=== PATIENT | female | born 1980 | race Caucasian/White ===

== ENCOUNTER 2016-06-05 | Emergency (ER) | payer OTHER | END 2016-06-05 21:16 | disposition home or self-care (01) ==

== ENCOUNTER 2020-01-28 06:29 | Emergency (ER) | payer OTHER ==
[2020-01-28] MEDS ORDERED: FAMOTIDINE 20 MG/2 ML SYRINGE IVP STA (06:45)
[2020-01-28] MEDS ORDERED: FOLIC ACID INJ 1 MG, THIAMINE INJ 100 MG, MAGNESIUM SULFATE 2 GM, MULTIVITAMIN 10 ML in... IV STA ×5 (06:45)
[2020-01-28] MEDS ORDERED: ONDANSETRON 4 MG/2 ML VIAL IVP STA ×2 (06:46)
[2020-01-28] MEDS ORDERED: PANTOPRAZOLE 40 MG VIAL IV STA (06:46)
[2020-01-28] MEDS ORDERED: LORazepam 2 MG/ML VIAL IVP STA ×2 (06:46→08:12)
[2020-01-28] MEDS ORDERED: SODIUM CHLORIDE 0.9% 1,000 ML IV STA (06:46)
[2020-01-28 07:19] LABS: BASOPHILS # (AUTO) 0.1 10^3/uL (0.0-0.1); EOSINOPHILS # (AUTO) 0.2 10^3/uL (0.0-0.7); EOSINOPHILS % (AUTO) 2.9 %; HGB - HEMOGLOBIN 15.8 g/dL (12.0-16.0); LYMPHOCYTES % (AUTO) 19.8 %; MEAN CORPUSCULAR HEMOGLOBIN 33.3 pg (27.0-31.0); MEAN CORPUSCULAR HGB CONC 34.9 g/dL (32.0-36.0); MEAN CORPUSCULAR VOLUME 95.4 fL (81.0-99.0); MEAN PLATELET VOLUME 10.3 fL (7.9-10.8); MONOCYTES # (AUTO) 0.4 10^3/uL (0.0-1.0); MONOCYTES % (AUTO) 8.3 %; NEUTROPHILS # (AUTO) 3.5 10^3/uL (1.5-6.6); NEUTROPHILS % (AUTO) 67.6 %; PLT - PLATELET COUNT 125 10^3/uL (130-450); RED BLOOD COUNT 4.75 10^6/uL (4.20-5.40); RED CELL DISTRIBUTION WIDTH 13.2 % (12.0-15.0); WHITE BLOOD COUNT 5.2 x10^3/uL (4.8-10.8)
[2020-01-28 07:25] LABS: INR 1.1 (0.8-1.2)
[2020-01-28 07:35] LABS: PARTIAL THROMBOPLASTIN TIME 30.5 secs (24.9-33.3)
[2020-01-28 07:49] LABS: MUDS CUTOFF CONCENTRATIONS CUTOFF CONC BELOW:
[2020-01-28 07:52] LABS: BILIRUBIN,URINE NEGATIVE (NEGATIVE); GLUCOSE, URINE (UA) NEGATIVE (NEGATIVE); KETONES,URINE (UA) 15 mg/dL (NEGATIVE); LEUKOCYTE ESTERASE, URINE TRACE (NEGATIVE); NITRITE,URINE NEGATIVE (NEGATIVE); OCCULT BLOOD,URINE NEGATIVE (NEGATIVE); PROTEIN,URINE TRACE mg/dL (NEGATIVE); UROBILINOGEN,URINE 0.2 (NORMAL) E.U./dL (NORMAL)
[2020-01-28 07:57] LABS: CLARITY,URINE HAZY (CLEAR); HCG UR QUAL NEGATIVE
[2020-01-28 08:00] LABS: BACTERIA,URINE Many /HPF (None Seen); MUCUS,URINE Marked Strands; RBC,URINE 0-5 /HPF (0-5); SQUAMOUS EPITHELIAL CELL,UR MANY Squamous (<= Few)
[2020-01-28 08:04] LABS: AMPHETAMINE SCREEN,URINE NEGATIVE (NEGATIVE); BENZODIAZEPINES SCREEN, URINE NEGATIVE (NEGATIVE); COCAINE SCREEN URINE NEGATIVE (NEGATIVE); METHADONE SCREEN, URINE NEGATIVE (NEGATIVE); METHAMPHETAMINES SCREEN, URINE NEGATIVE (NEGATIVE); OPIATE SCREEN, URINE NEGATIVE (NEGATIVE); OXYCODONE SCREEN, URINE NEGATIVE (NEGATIVE); PROPOXYPHENE SCREEN, URINE NEGATIVE (NEGATIVE); TRICYCLIC ANTIDEPRESSANT,URINE NEGATIVE (NEGATIVE)
[2020-01-28 08:12] LABS: ALBUMIN 4.5 g/dL (3.2-5.5); ALBUMIN/GLOBULIN RATIO 1.3 (1.0-2.2); BILIRUBIN,TOTAL 1.3 mg/dL (0.2-1.0); CALCIUM 8.9 mg/dL (8.5-10.3); CREATININE 0.6 mg/dL (0.4-1.0); MAGNESIUM 1.9 mg/dL (1.7-2.8); TOTAL PROTEIN 7.9 g/dL (6.7-8.2)
--- NOTE | 2020-01-28 08:17 | ED Physician Documentation ---
PD HPI NVD - Stated complaint Stated Complaint: VOMITING - Chief complaint Chief Complaint: Abd Pain - History obtained from History obtained from: Patient - History of Present Illness Timing - onset: How many days ago (2) Timing - duration: Days (2) Timing - details: Gradual onset, Still present Associated symptoms: Abdominal pain, Hematemesis, Other (nose bleeds and shaking) Contributing factors: Alcohol use Improved by: Vomiting Similar symptoms before: Has not had sx before Recently seen: Not recently seen - Additonal information Additional information: 39-year-old female who is going through divorce has taken up drinking on a regular basis and she is drinking about 4 drinks per night. She developed some epigastric pain and vomiting and this has been going on for about 2 months. This morning she got up to brush her teeth and vomited blood. She became concerned and has come to the emergency department. She feels shaky she states that she has not had anything to drink in 2 days and that she has had nosebleeds for the past 2 days. Review of Systems Constitutional: denies: Fever Eyes: denies: Decreased vision Ears: denies: Ear pain Nose: denies: Rhinorrhea / runny nose, Congestion Throat: denies: Sore throat Cardiac: denies: Chest pain / pressure, Palpitations Respiratory: denies: Dyspnea, Cough GI: reports: Abdominal Pain, Nausea, Vomiting. denies: Constipation, Diarrhea : denies: Dysuria Skin: denies: Rash Musculoskeletal: denies: Neck pain, Back pain, Extremity pain Neurologic: denies: Generalized weakness, Focal weakness, Numbness Psychiatric: reports: Anxiety PD PAST MEDICAL HISTORY - Past Medical History Past Medical History: Yes Cardiovascular: Hypertension Respiratory: None Neuro: None Endocrine/Autoimmune: None GI: GERD APPLICATION COUNSELOR: None : None HEENT: None Psych: None Musculoskeletal: None Derm: None - Past Surgical History Past Surgical History: Yes Ortho: ACL reconstruction /APPLICATION COUNSELOR: section - Present Medications Home Medications: Ambulatory Orders Medication Instructions Recorded Confirmed LORazepam [Ativan] 1 - 2 mg PO Q6HR PRN #20 tablet 01/28/20 Losartan [Cozaar] 50 mg PO DAILY 01/28/20 01/28/20 Ondansetron Odt [Zofran] 4 mg TL Q6H PRN #10 tablet 01/28/20 Sucralfate [Carafate] 1 gm PO ACHS #60 tablet 01/28/20 - Allergies Allergies/Adverse Reactions: Allergies Allergy/AdvReac Type Severity Reaction Status Date / Time Penicillins Allergy Anaphylaxis Verified 01/28/20 06:50 - Social History Does the pt smoke?: Yes Smoking Status: Current every day smoker Does the pt drink ETOH?: No ETOH Use: Liquor Does the pt have substance abuse?: No - Immunizations Immunizations are current?: Yes - POLST Patient has POLST: No PD ED PE NORMAL - Vitals Vital signs reviewed: Yes (Tachycardic and hypertensive) - General General: Alert and oriented X 3, Well developed/nourished, Other (Pleasant cooperative 39-year-old female appears shaky.) - HEENT HEENT: Atraumatic, PERRL, EOMI - Neck Neck: Supple, no meningeal sign, No bony TTP - Cardiac Cardiac: No murmur, Other (Tachycardia to 110) - Respiratory Respiratory: No respiratory distress, Clear bilaterally - Abdomen Abdomen: Normal bowel sounds, Soft, Non tender, Non distended, No organomegaly - Back Back: No CVA TTP, No spinal TTP - Derm Derm: Normal color, Warm and dry, No rash - Extremities Extremities: No deformity, No edema - Neuro Neuro: Alert and oriented X 3, account solutions analyst 2-12 intact, No motor deficit, No sensory deficit, Normal speech Eye Opening: Spontaneous Motor: Obeys Commands Verbal: Oriented GCS Score: 15 - Psych Psych: Normal mood, Normal affect Results - Vitals Vitals: Vital Signs - 24 hr 01/28/20 01/28/20 01/28/20 06:30 07:46 09:06 Temperature 36.2 C L 36.6 C 37.4 C Heart Rate 118 H 94 105 H Respiratory 18 16 18 Rate Blood Pressure 142/105 H 136/104 H 138/104 H O2 Saturation 98 100 98 Oxygen O2 Source Room air - Labs Labs: Laboratory Tests 01/28/20 01/28/20 01/28/20 07:09 07:09 07:09 WBC 5.2 RBC 4.75 Hgb 15.8 Hct 45.3 MCV 95.4 MCH 33.3 H MCHC 34.9 RDW 13.2 Plt Count 125 L MPV 10.3 Neut # (Auto) 3.5 Lymph # (Auto) 1.0 L [place] # (Auto) 0.4 Eos # (Auto) 0.2 Baso # (Auto) 0.1 Absolute Nucleated RBC 0.00 Nucleated RBC % 0.0 PT 12.0 INR 1.1 APTT 30.5 Sodium 140 Potassium 3.8 Chloride 101 Carbon Dioxide 21 Anion Gap 18.0 H BUN 14 Creatinine 0.6 Estimated GFR (MDRD) 112 Glucose 103 H Calcium 8.9 Magnesium 1.9 Total Bilirubin 1.3 H AST 148 H ALT 91 H Alkaline Phosphatase 68 Total Creatine Kinase 92 Total Protein 7.9 Albumin 4.5 Globulin 3.4 Albumin/Globulin Ratio 1.3 Lipase 45 Urine Color Urine Clarity Urine pH Ur Specific [place] Urine Protein Urine Glucose (UA) Urine Ketones Urine Occult Blood Urine Nitrite Urine Bilirubin Urine Urobilinogen Ur Leukocyte Esterase Urine RBC Urine WBC Ur Squamous Epith Cells Urine Bacteria Urine Mucus Ur Microscopic Review Urine Culture Comments Urine HCG, Qual Urine Opiates Screen Ur Oxycodone Screen Urine Methadone Screen Ur Propoxyphene Screen Ur Barbiturates Screen Ur Tricyclics Screen Ur Phencyclidine Scrn Ur Amphetamine Screen U Methamphetamines Scrn U Benzodiazepines Scrn Urine Cocaine Screen U Cannabinoids Screen Ethyl Alcohol 73.9 01/28/20 07:40 WBC RBC Hgb Hct MCV MCH MCHC RDW Plt Count MPV Neut # (Auto) Lymph # (Auto) [place] # (Auto) Eos # (Auto) Baso # (Auto) Absolute Nucleated RBC Nucleated RBC % PT INR APTT Sodium Potassium Chloride Carbon Dioxide Anion Gap BUN Creatinine Estimated GFR (MDRD) Glucose Calcium Magnesium Total Bilirubin AST ALT Alkaline Phosphatase Total Creatine Kinase Total Protein Albumin Globulin Albumin/Globulin Ratio Lipase Urine Color YELLOW Urine Clarity HAZY Urine pH 7.0 Ur Specific [place] 1.020 Urine Protein TRACE Urine Glucose (UA) NEGATIVE Urine Ketones 15 H Urine Occult Blood NEGATIVE Urine Nitrite NEGATIVE Urine Bilirubin NEGATIVE Urine Urobilinogen 0.2 (NORMAL) Ur Leukocyte Esterase TRACE H Urine RBC 0-5 Urine WBC 4-5 Ur Squamous Epith Cells MANY Squamous H Urine Bacteria Many H Urine Mucus Marked Strands Ur Microscopic Review INDICATED Urine Culture Comments NOT INDICATED Urine HCG, Qual NEGATIVE Urine Opiates Screen NEGATIVE Ur Oxycodone Screen NEGATIVE Urine Methadone Screen NEGATIVE Ur Propoxyphene Screen NEGATIVE Ur Barbiturates Screen NEGATIVE Ur Tricyclics Screen NEGATIVE Ur Phencyclidine Scrn NEGATIVE Ur Amphetamine Screen NEGATIVE U Methamphetamines Scrn NEGATIVE U Benzodiazepines Scrn NEGATIVE Urine Cocaine Screen NEGATIVE U Cannabinoids Screen NEGATIVE Ethyl Alcohol PD MEDICAL DECISION MAKING - ED course Complexity details: reviewed old records, reviewed results, re-evaluated patient, considered differential, d/w patient ED course: 39-year-old female under a lot of stress going through divorce has increased her alcohol consumption excessively and now she has developed alcoholic gastritis with bleeding. She has some current alcohol withdrawal symptoms despite a blood alcohol level of 74. She is treated in the emergency department with Ativan she is given a banana bag and and a liter of saline as well as pepcid and zofran. She is much improved at the conclusion of treatment and is invested in alcohol cessation. She does not think she will have a problem with this and we have given her 5 days off work to accomplish this. She declined support from social media content specialist for alcohol or stress. Departure - Departure Disposition: 01 Home, Self Care Clinical Impression: Stress and adjustment reaction Gastritis Qualifiers: Gastritis type: alcoholic Chronicity: acute Gastritis bleeding: with bleeding Qualified Code(s): K29.21 - Alcoholic gastritis with bleeding Alcohol withdrawal Qualifiers: Complication of substance-induced condition: uncomplicated Qualified Code(s): F10.230 - Alcohol dependence with withdrawal, uncomplicated Condition: Stable Instructions: ED Withdrawal Alcohol, ED PUD Vs Gastritis, ED Stress React, ED Adjustment Disorder Follow-Up: [facility] [Provider Group] Prescriptions: LORazepam [Ativan] 1 - 2 mg PO Q6HR PRN #20 tablet PRN Reason: withdrawal symptoms Sucralfate [Carafate] 1 gm PO ACHS #60 tablet Ondansetron Odt [Zofran] 4 mg TL Q6H PRN #10 tablet PRN Reason: Nausea / Vomiting Comments: Today it appears your stomach lining has been irritated by the alcohol and the recommendation is to discontinue the use of the alcohol and to use the Carafate to help heal up the stomach. In addition to the Carafate you will need to take something to reduce the acid in your stomach such as Pepcid AC or Nexium available [id number]. You should take these medicines for at least 10 days. Your symptoms should improve rapidly. For the alcohol withdrawal symptoms use the Ativan as needed. Expect to have some problems with withdrawal symptoms for about 5 days. Forms: Activity restrictions
[2020-01-28 10:46] VITALS: BP 138/92
== END 2020-01-28 10:56 | disposition home or self-care (01) ==
LOC: ED 06:29
DX: K29.21 Alcoholic gastritis with bleeding (principal); F10.230 Alcohol dependence with withdrawal, uncomplicated; I10 Essential (primary) hypertension; F17.200 Nicotine dependence, unspecified, uncomplicated
CPT/HCPCS: 36415; 80053; 80306; 80320; 81001; 81025; 82550; 83690; 83735; 85025; 85610; 85730; 96361; 96365; 96366; 96375; 96376; 99284; J2060; J3411; 81003; 87086